=== PATIENT | female | born 1965 | race Caucasian/White ===

== ENCOUNTER 2017-05-04 23:42 | Emergency (ER) | payer OTHER ==
[~2017-05-04] VITALS: Ht 167.6 cm; Wt 132.0 kg
[~2017-05-04 23:42] MED LIST: ADVIL200 MG PO; BACTRIM,SEPT1 TABLET PO; CEFDINIR300 MG PO; CLINDAMYCIN HC300 MG PO; IBUPROFEN400 MG PO; NAPROSYN500 MG PO; PERCOCET 5/31 TABLET PO; PERCOCET 7.51 TABLET PO; XANAX0.5 MG PO
[2017-05-05] MEDS ORDERED: CLEOCIN300 MG PO (02:10)
[2017-05-05 02:26] VITALS: BP 183/95
== END 2017-05-05 02:26 | disposition home or self-care (01) ==
LOC: EME 23:42
PROC: 0H9BXZZ Drainage of Right Upper Arm Skin, External Approach (ICD-10-PCS; principal; 2017-05-04)
DX: L02.411 Cutaneous abscess of right axilla (principal); F17.200 Nicotine dependence, unspecified, uncomplicated
CPT/HCPCS: 99281; 99284; J1630; J2270